=== PATIENT | female | born 1975 | race Caucasian/White ===

== ENCOUNTER → 2017-10-19 | Day surgery (SDC) | payer MEDICAID ==
[~2017-10-19] VITALS: Ht 180.3 cm; Wt 109.0 kg
[~2017-10-19] MED LIST: BUPIVACAINE HCL PF 0.5% 10 ML VIAL ONE; CEPH-460 PO; CHLORHEXIDINE GLUCONATE 2 % 1 PACK (2 CLOTHS) TOPICAL PRN; HYDR-3288 PO; IBUP1TAB7 PO; LACTATED RINGER'S 1000 ML IV PRN; LIDOCAINE HCL 1% PF 5 ML SYRINGE OTHER ONE; LIDOCAINE HCL 2% 50 ML VIAL ONE; LURA40 PO; MIDAZOLAM HCL 2 MG/2 ML VIAL ONE; NEOMYCIN/POLYMYXIN 1 ML G.U. IRRIGANT ONE; PANT40TA3 PO; POVIDONE IODINE 5% (ANTISEPSIS KIT) 4 APPLICATIONS EACH NARE PRN; PROPOFOL 200 MG/20 ML AMP IV ONE; RANI150T PO; RIZA10TA2 PO; SODIUM CHLORID 0.9% 500 ML IV PRN; ceFAZolin 2 GM/DEX PREMIX 50 ML IV SCH
--- NOTE | 2017-10-19 09:45 | MP ---
cc: Alexys Rocha MD DATE OF OPERATION: 10/19/2017 PROCEDURE PERFORMED: Right third and fourth A1 nieves releases. SURGEON: Alexys Rocha MD DESCRIPTION OF PROCEDURE: The patient was brought to the operating room, placed supine on the operating table. After the correct site and side of surgery were verified by members of each team in the room multiple times including the patient and myself and after adequate preoperative marking, preoperative written consent verified by everyone and after adequate preoperative timeout was performed to everyone's satisfaction and after adequate IV sedation was achieved, the right upper extremity was prepped and draped in traditional sterile surgical fashion. A 50:50 mixture of 2% plain lidocaine and 0.5% plain Marcaine was infiltrated into the skin and subcutaneous tissue at the base of the palm. The limb was exsanguinated with an Zoran wrap. A highly-placed well-padded axillary tourniquet was inflated to 200 mmHg for a total of 10 minutes. A longitudinally oriented incision in the flexion crease of the palm was made and carried down through the skin and subcutaneous tissue. Blunt dissection was performed. The fourth A1 nieves was identified first and then incised in its entirety in its midline from its proximal most and distal most extents. The exploration proximally did not reveal any crossing bands of tissue or any further constriction. The tendons were all intact. Thorough irrigation was performed with saline. Skin edges were reapproximated using a running 4-0 nylon suture. The identical procedure was then performed for the third A1 nieves. The hand and arm were thoroughly cleansed and dried. Betadine, Adaptic dressings were applied on top of the wounds, followed by a bulky dressing. The axillary tourniquet was released. The hand and all the fingers became immediately soft, pink and warm, had brisk capillary refill of less than 2 seconds. MD PACHECO Krishna/RAFITA , 09:29 AM , 09:44 AM
[2017-10-19 10:00] VITALS: BP 115/62; PULSE 80; RESP 16; TEMP 98.1; O2SAT 94
== END | disposition home or self-care (01) ==
LOC: PHSDC 06:15
PROVIDERS: ATTEND Orthopaedic Surgery Hand Surgery
DX: M65.331 Trigger finger, right middle finger (principal); M65.341 Trigger finger, right ring finger
CPT/HCPCS: 01810; 26055; J0690; J2250; J3010; J7120